=== PATIENT | female | born 1955 | race Two or more races ===

== ENCOUNTER 2018-07-02 06:22 | Day surgery (SDC) | payer OTHER ==
[2018-07-02] MEDS ORDERED: METOPROLOL 5 MG INJ (07:50)
[2018-07-02] MEDS ORDERED: ONDANSETRON 4 MG INJ (07:50)
[2018-07-02] MEDS ORDERED: PROPOFOL 40 ML (07:50)
== END 2018-07-02 12:15 | disposition home or self-care (01) ==
LOC: GIL 06:22
DX: Z12.11 Encounter for screening for malignant neoplasm of colon (principal); D12.6 Benign neoplasm of colon, unspecified; K64.8 Other hemorrhoids; E03.9 Hypothyroidism, unspecified
CPT/HCPCS: 45385